=== PATIENT | male | born 1960 | race Caucasian/White ===

== ENCOUNTER 2017-11-17 02:07 | Observation (INO) | payer OTHER ==
[~2017-11-17] VITALS: Ht 190.5 cm; Wt 115.3 kg
[2017-11-17] VITALS (9 sets, daily range): BP systolic 117–150; BP diastolic 65–75; PULSE 88–109; RESP 12–20; TEMP 97.5–98.9; O2SAT 93–96
[~2017-11-17 02:07] MED LIST: BYST10TA2 PO; NAPR-576 PO; OMEP20TA PO; PRIS50TA PO
--- NOTE | 2017-11-17 02:28 | PD ---
HPI Chief Complaint: chest pain, shortness of breath, cough Time Seen by Provider: 02:15 Travel History International Travel<30 days: No Contact w/Intl Traveler<30days: No Traveled to known affect area: No History of Present Illness HPI 57-year-old male here for evaluation of chest pain, shortness of breath, cough. The patient reports having cough and upper respiratory symptoms for the last week. He was seen in urgent care facility and started on albuterol and Augmentin a few days ago. For the last couple of days he has been having substernal chest heaviness. He quit smoking cigarettes 5 days ago and states he was smoking about 5 cigarettes daily. Substernal pressure is 8 out of 10, constant, nonradiating, no modifying factors. Cough initially was productive of greenish sputum, now is productive of clear/whitish sputum. No hemoptysis. No history of DVT or PE. The patient reports he was seen in the emergency department about 5 years ago for the same. Chart was reviewed from that visit and shows that he had bilateral pleural effusions that the patient states resolved without pleurocentesis. His symptoms also resolved with 2 nebs and steroids at that time. He denies ever being formerly diagnosed with COPD, emphysema, or asthma. PFSH Past Medical History Asthma: Yes Autoimmune Disease: No Anxiety: Yes Depression: Yes Heart Rhythm Problems: No Cancer: No Cardiovascular Problems: Yes High Cholesterol: No Chest Pain: No Congestive Heart Failure: No COPD: Yes Cerebrovascular Accident: No Diminished Hearing: No Endocrine: No Genitourinary: Yes Hypertension: Yes Immune Disorder: No Kidney Stones: Yes Musculoskeletal: Yes Neurologic: Yes (PT HAS PROBLEM EXPRESSING HIMSELF) Psychiatric: Yes Reproductive: No Respiratory: Yes Migraines: Yes Seizures: Yes Ulcer: Yes Past Surgical History Abdominal Surgery: Yes (RIGHT HERNIA REPAIR) Cardiac Surgery: Yes (HEART CATH) Ear Surgery: No Endocrine Surgery: No Eye Surgery: No Oral Surgery: No Thoracic Surgery: No Tonsillectomy: Yes Social History Alcohol Use: Yes (10 DRINKS PER MONTH) Tobacco Use: No (QUIT 6 MONTHS AGO) Substance Use: No Allergies-Medications (Allergen,Severity, Reaction): Coded Allergies: No Known Allergies (Verified Adverse Reaction, Unknown, 11/17/17) Reported Meds & Prescriptions Reported Meds & Active Scripts Active Review of Systems Except as stated in HPI: all other systems reviewed are Neg Physical Exam Narrative GENERAL: Well-developed, well-nourished, comfortable, no apparent distress. SKIN: Focused skin assessment warm/dry. HEAD: Atraumatic. Normocephalic. EYES: Pupils equal and round. No scleral icterus. No injection or drainage. ENT: No nasal bleeding or discharge. Mucous membranes pink and moist. NECK: Trachea midline. No JVD. CARDIOVASCULAR: Regular rate and rhythm. RESPIRATORY: No accessory muscle use. Poor air movement bilaterally with slight end expiratory wheezes bilaterally with rhonchi on the right mid/lower lung duran. Speaking full sentences. Breath sounds equal bilaterally. GASTROINTESTINAL: Abdomen soft, non-tender, nondistended. MUSCULOSKELETAL: No obvious deformities. No clubbing. No cyanosis. No edema. NEUROLOGICAL: Awake and alert. No obvious cranial nerve deficits. Motor grossly within normal limits. Normal speech. PSYCHIATRIC: Appropriate mood and affect; insight and judgment normal. Data Data Last Documented VS Vital Signs Date Time Temp Pulse Resp B/P (MAP) Pulse Ox O2 Delivery O2 Flow Rate FiO2 11/17/17 04:22 99 16 150/74 (99) 93 Room Air 11/17/17 02:12 98.9 Orders Orders Complete Blood Count With Diff (11/17/17 02:22) Comprehensive Metabolic Panel (11/17/17 02:22) B-Type Natriuretic Peptide (11/17/17 02:22) Act Partial Throm Time (Ptt) (11/17/17 02:22) Prothrombin Time / Inr (Pt) (11/17/17 02:22) Ckmb (Isoenzyme) Profile (11/17/17 02:22) Troponin I (11/17/17 02:22) Iv Access Insert/Monitor (11/17/17 02:22) Electrocardiogram (11/17/17 02:22) Ecg Monitoring (11/17/17 02:22) Oximetry (11/17/17 02:22) Oxygen Administration (11/17/17 02:22) Chest, Single Ap (11/17/17 02:22) Ct Pulmonary Angiogram (11/17/17 02:22) Sodium Chloride 0.9% Flush (Ns Flush) (11/17/17 02:30) Methylprednisolone So Succ Inj (Solumedr (11/17/17 02:30) Albuterol-Ipratropium Neb (Duoneb Neb) (11/17/17 02:30) CKMB (11/17/17 02:34) CKMB% (11/17/17 02:34) Iohexol 350 Inj (Omnipaque 350 Inj) (11/17/17 03:26) Influenzae A/B Antigen (11/17/17 04:07) Aspirin Chew (Aspirin Chew) (11/17/17 04:30) Levofloxacin (Levaquin) (11/17/17 05:00) Labs Laboratory Tests Test 11/17/17 02:34 White Blood Count 10.9 TH/MM3 Red Blood Count 5.55 MIL/MM3 Hemoglobin 17.0 GM/DL Hematocrit 50.0 % Mean Corpuscular Volume 90.1 FL Mean Corpuscular Hemoglobin 30.6 PG Mean Corpuscular Hemoglobin Concent 33.9 % Red Cell Distribution Width 11.9 % Platelet Count 262 TH/MM3 Mean Platelet Volume 8.2 FL Neutrophils (%) (Auto) 76.5 % Lymphocytes (%) (Auto) 8.0 % Monocytes (%) (Auto) 7.0 % Eosinophils (%) (Auto) 5.3 % Basophils (%) (Auto) 3.2 % Neutrophils # (Auto) 8.3 TH/MM3 Lymphocytes # (Auto) 0.9 TH/MM3 Monocytes # (Auto) 0.8 TH/MM3 Eosinophils # (Auto) 0.6 TH/MM3 Basophils # (Auto) 0.3 TH/MM3 CBC Comment DIFF FINAL Differential Comment Prothrombin Time 11.2 SEC Prothromb Time International Ratio 1.1 RATIO Activated Partial Thromboplast Time 28.5 SEC Blood Urea Nitrogen 13 MG/DL Creatinine 1.10 MG/DL Random Glucose 117 MG/DL Total Protein 7.5 GM/DL Albumin 3.8 GM/DL Calcium Level 8.8 MG/DL Alkaline Phosphatase 74 U/L Aspartate Amino Transf (AST/SGOT) 23 U/L Alanine Aminotransferase (ALT/SGPT) 28 U/L Total Bilirubin 1.1 MG/DL Sodium Level 140 MEQ/L Potassium Level 3.9 MEQ/L Chloride Level 107 MEQ/L Carbon Dioxide Level 24.5 MEQ/L Anion Gap 9 MEQ/L Estimat Glomerular Filtration Rate 69 ML/MIN Total Creatine Kinase 349 U/L Creatine Kinase MB 2.0 NG/ML Creatine Kinase MB % 0.6 % Troponin I LESS THAN 0.02 NG/ML B-Type Natriuretic Peptide 13 PG/ML MDM Medical Decision Making Medical Screen Exam Complete: Yes Emergency Medical Condition: Yes Medical Record Reviewed: Yes Interpretation(s) EKG: Sinus, rate 93, normal axis, normal intervals, no acute ischemic abnormality. Differential Diagnosis COPD/reactive airway disease, bronchitis, pneumonia, PE, ACS, pneumothorax, pleural effusion Narrative Course Initial vital signs show heart rate 101, blood pressure 137/68, pulse ox 95% on room air, oral temp of 98.9F. CBC: WBC 10.9, hemoglobin 17, hematocrit 50, platelets 262, neutrophils 76.5%. CMP is essentially unremarkable. BNP is 13. Cardiac enzymes are negative. Chest x-ray: No acute disease. CT Pulmonary Angiogram: Normal exam. Influenza is negative. Patient was given 3 DuoNeb treatments and IV Solu-Medrol and on reassessment he states that his breathing feels improved and he no longer feels chest heaviness. The patient was also given a full dose of aspirin. 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 His saturation still 93% on room air and he still has slight wheezes bilaterally. Patient's symptoms are most likely all pulmonary and the patient likely has bronchitis. He was already started on Augmentin by an urgent care facility, however I will discontinue this and start him on Levaquin for better pulmonary coverage. I would like to place the patient in observation for reactive airway disease with an acute exacerbation as well as for serial cardiac enzymes. Case discussed with hospitalist Dr. Mccarthy who will admit the patient to the hospitalist service. Diagnosis Primary Impression: Chest pain Qualified Codes: R07.9 - Chest pain, unspecified Additional Impressions: Bronchitis Hypoxia Admitting Information Admitting Physician Requests: Folrentin Roque MD Nov 17, 2017 02:28
[2017-11-17] MEDS ORDERED: SODIUM CHLORIDE 0.9% FLUSH 10 ML FLUSH IVF PRN (02:30)
[2017-11-17] MEDS ORDERED: methylPREDNISolone SOD SUCC 125 MG/2 ML VIAL IV PUSH ONE (02:30)
[2017-11-17] MEDS: RESP: ALBUTEROL 2.5 MG/IPRATROPIUM 0.5 MG NEB (SCH) INH (02:33)
[2017-11-17 02:45] LABS: AUTOMATED NEUTROPHIL # 8.3 TH/MM3 (1.8-7.7); BASOPHIL # 0.3 TH/MM3 (0-0.2); BASOPHIL % 3.2 % (0.0-2.0); EOSINOPHIL # 0.6 TH/MM3 (0-0.4); EOSINOPHIL % 5.3 % (0.0-4.0); LYMPHOCYTE # 0.9 TH/MM3 (1.0-4.8); MEAN CELL VOLUME 90.1 FL (80.0-100.0); MEAN CORPUSCULAR HEMOGLOBIN 30.6 PG (27.0-34.0); MEAN CORPUSCULAR HGB CONC 33.9 % (32.0-36.0); MEAN PLATELET VOLUME 8.2 FL (7.0-11.0); MONOCYTE # 0.8 TH/MM3 (0-0.9); NEUT % 76.5 % (16.0-70.0); PLATELET COUNT 262 TH/MM3 (150-450); RED BLOOD COUNT 5.55 MIL/MM3 (4.50-5.90); RED CELL DISTRIBUTION WIDTH 11.9 % (11.6-17.2); WHITE BLOOD COUNT 10.9 TH/MM3 (4.0-11.0)
--- NOTE | 2017-11-17 02:52 | RADRPT ---
EXAM DATE/TIME: 11/17/2017 02:29 [facility] COMPARISON: No previous studies available for comparison. INDICATIONS : Short of breath. MEDICAL HISTORY : Rheumatoid arthritis. SURGICAL HISTORY : None. ENCOUNTER: Initial ACUITY: 1 day PAIN SCORE: 4/10 LOCATION: Bilateral chest FINDINGS: A single view of the chest demonstrates the lungs to be symmetrically aerated without evidence of mas s, infiltrate or effusion. The cardiomediastinal contours are unremarkable. Osseous structures are intact. CONCLUSION: No acute disease. Bert Marcus Jr., MD on November 17, 2017 at 2:51 Board Certified Radiologist. This report was verified electronically.
[2017-11-17 02:53] LABS: CHLORIDE 107 MEQ/L (98-107); SODIUM (NA) 140 MEQ/L (136-145)
[2017-11-17 02:56] LABS: ALBUMIN 3.8 GM/DL (3.4-5.0); BICARBONATE 24.5 MEQ/L (21.0-32.0); CALCIUM 8.8 MG/DL (8.5-10.1); GLUCOSE,RANDOM 117 MG/DL (74-106)
[2017-11-17 02:57] LABS: BLOOD UREA NITROGEN 13 MG/DL (7-18); INTERNATIONAL NORMALIZED RATIO 1.1 RATIO; PROTHROMBIN TIME - PATIENT 11.2 SEC (9.8-11.6)
[2017-11-17 02:59] LABS: ALT (GPT) 28 U/L (12-78); AST (GOT) 23 U/L (15-37)
[2017-11-17 03:00] LABS: GLOMERULAR FILTRATION RATE 69 ML/MIN (>89)
[2017-11-17 03:01] LABS: TOTAL BILIRUBIN ADULT 1.1 MG/DL (0.2-1.0); TOTAL PROTEIN 7.5 GM/DL (6.4-8.2)
[2017-11-17 03:02] LABS: ALKALINE PHOSPHATASE 74 U/L (45-117)
[2017-11-17 03:04] LABS: TROPONIN I LESS THAN 0.02 NG/ML (0.02-0.05)
[2017-11-17] MEDS ORDERED: IOHEXOL 350 MG/ML 10 ML VIAL (for RAD DIAG) IVCONTRAST ONE (03:26)
--- NOTE | 2017-11-17 04:15 | RADRPT ---
EXAM DATE/TIME: 11/17/2017 03:14 [facility] COMPARISON: No previous studies available for comparison. INDICATIONS : Shortness of breath. IV CONTRAST: 65 cc Omnipaque 350 (iohexol) IV RADIATION DOSE: 20.54 CTDIvol (mGy) MEDICAL HISTORY : Cardiovascular disease. Hypertension. Chronic obstructive pulmonary disease. SURGICAL HISTORY : None. ENCOUNTER: Initial ACUITY: 1 day PAIN SCALE: 0/10 LOCATION: chest TECHNIQUE: Volumetric scanning of the chest was performed using a pulmonary embolism protocol MIP images were re constructed. Using automated exposure control and adjustment of the mA and/or kV according to patien t size, radiation dose was kept as low as reasonably achievable to obtain optimal diagnostic quality images. DICOM format image data is available electronically for review and comparison. Follow-up recommendations for detected pulmonary nodules are based at a minimum on nodule size and pa tient risk factors according to Fleischner Society Guidelines. FINDINGS: PULMONARY ARTERIES: No filling defects are seen in the pulmonary arteries through the segmental level. LUNGS: There is no consolidation or pneumothorax . No concerning pulmonary nodule is visualized. PLEURAE: There is no pleural thickening or pleural effusion. MEDIASTINUM: There is good visualization of the great vessels of the middle mediastinum. No evidence of mediastin al or hilar adenopathy/mass. MUSCULOSKELETAL: Within normal limits for patient age. MISCELLANEOUS: The visualized upper abdominal organs demonstrate no acute abnormality. CONCLUSION: Normal examination. Bert Marcus Jr., MD on November 17, 2017 at 4:12 Board Certified Radiologist. This report was verified electronically.
[2017-11-17] MEDS ORDERED: ASPIRIN 81 MG CHEW TAB PO ONE (04:30)
[2017-11-17] MEDS ORDERED: ACETAMINOPHEN/HYDROcodone 325 MG/5 MG TAB PO PRN (04:45)
[2017-11-17] MEDS ORDERED: LACTULOSE SYRUP 20 GM/30 ML CUP PO PRN (04:45)
[2017-11-17] MEDS ORDERED: ACETAMINOPHEN 325 MG TAB PO PRN (04:45)
[2017-11-17] MEDS ORDERED: BISACODYL 10 MG SUPP RECTAL PRN (04:45)
[2017-11-17] MEDS ORDERED: SODIUM CHLORIDE 0.9% FLUSH 10 ML FLUSH IV FLUSH PRN (04:45)
[2017-11-17] MEDS ORDERED: SENNOSIDES 8.6 MG TAB PO PRN (04:45)
[2017-11-17] MEDS ORDERED: ONDANSETRON HCL 4 MG/2 ML VIAL IVP PRN (04:45)
[2017-11-17] MEDS ORDERED: MAGNESIUM HYDROXIDE SUSP 30 ML CUP PO PRN (04:45)
[2017-11-17] MEDS ORDERED: MORPHINE SULFATE 2 MG/ML INJ IV PUSH PRN (04:45)
[2017-11-17] MEDS ORDERED: NALOXONE HCL 0.4 MG/ML AMP IV PUSH PRN (04:45)
[2017-11-17] MEDS ORDERED: ENOXAPARIN SODIUM 40 MG/0.4 ML SYRINGE SQ SCH (04:45)
[2017-11-17] MEDS ORDERED: RESP: ALBUTEROL 2.5 MG/IPRATROPIUM 0.5 MG NEB (PRN) NEB (04:45)
[2017-11-17] MEDS ORDERED: LEVOFLOXACIN 500 MG TAB PO ONE (05:00)
[2017-11-17] MEDS ORDERED: methylPREDNISolone SOD SUCC 40 MG/1 ML VIAL IV PUSH SCH (06:00)
[2017-11-17] MEDS: RESP: ALBUTEROL 2.5 MG/IPRATROPIUM 0.5 MG NEB (SCH) NEB ×2 (07:58→11:18)
[2017-11-17] MEDS ORDERED: SODIUM CHLORIDE 0.9% FLUSH 10 ML FLUSH IV FLUSH SCH (09:00)
[2017-11-17 09:15] LABS: TROPONIN I LESS THAN 0.02 NG/ML (0.02-0.05)
[2017-11-18] MEDS ORDERED: LEVOFLOXACIN 750 MG TAB PO SCH (06:00)
--- NOTE | 2017-11-18 18:35 | EKG ---
Date Performed: 11/17/2017 Time Performed: 08:46:31 PTAGE: 57 years EKG: Sinus rhythm NORMAL ECG PREVIOUS TRACING : 11/17/2017 02.46 DOCTOR: An Matthews Interpretating Date/Time 11/18/2017 18:34:44
--- NOTE | 2017-11-18 23:23 | EKG ---
Date Performed: 11/17/2017 Time Performed: 02:46:06 PTAGE: 57 years EKG: Sinus rhythm NORMAL ECG PREVIOUS TRACING : 10/26/2013 23.18 DOCTOR: An Matthews Interpretating Date/Time 11/18/2017 23:22:07
== END 2017-11-17 12:10 | disposition left against medical advice (07) ==
LOC: PHED 02:07 → PHEDA 04:50 → PH3A 07:54
PROVIDERS: ADMIT Hospitalist; ATTEND Hospitalist
DX: R07.9 Chest pain, unspecified (principal); J44.9 Chronic obstructive pulmonary disease, unspecified; R09.02 Hypoxemia; F17.210 Nicotine dependence, cigarettes, uncomplicated; F41.9 Anxiety disorder, unspecified; F32.9 Major depressive disorder, single episode, unspecified; I10 Essential (primary) hypertension; R06.02 Shortness of breath
CPT/HCPCS: 71045; 71275; 80053; 82550; 82552; 83880; 84484; 85025; 85610; 85730; 87804; 93005; 94640; 94664; 96372; 96374; 96376; 99285; G0378; J1650; J2920; J2930; Q9967